=== PATIENT | female | born 1980 | race Two or more races ===

== ENCOUNTER 2021-01-06 09:20 | Emergency (ER) | payer OTHER ==
[~2021-01-06] VITALS: Ht 152.4 cm; Wt 54.5 kg
[2021-01-06 09:28] VITALS: BP 110/49; Ht 152.4 cm; Wt 54.5 kg
[2021-01-06 09:53] LABS: BASOPHILS 0.5 % (0-2); EOSINOPHILS 0.8 % (0-7); HEMATOCRIT 36.8 % (36.0-48.0); HEMOGLOBIN 12.4 g/dL (12-16); IMMATURE GRANULOCYTES 0.1 % (0-5); LYMPHOCYTE ABS# 1.38 10x3/uL (1.18-3.74); MCH 30.2 pg (26.0-34.0); MCHC 33.7 g/dL (31.0-37.0); MCV 89.8 fL (80.0-100.0); MEAN PLATELET VOLUME 9.3 fL (7.4-10.4); NEUTROPHIL ABS# 5.48 10x3/uL (1.56-6.13); NEUTROPHILS 71.6 % (40-80); PLATELET COUNT 436 10x3/uL (130-400); RDW 13.3 % (11.5-14.5); WBC 7.7 10x3/uL (4.8-10.8)
[2021-01-06 09:58] LABS: CALC OSMOLALITY 267 mosm/kg (275-300); CALCIUM 8.9 mg/dL (8.5-10.1); CARBON DIOXIDE 20.8 mmol/L (21.0-32.0); CHLORIDE - SERUM 103 mmol/L (98-107); CREATININE - SERUM 0.5 mg/dL (0.6-1.3); GLUCOSE 85 mg/dL (74-106); POTASSIUM - SERUM 4.2 mmol/L (3.5-5.1); SODIUM 135 mmol/L (136-145); UREA NITROGEN 9 mg/dL (7-18); eGFR NON AFRICAN AMERICAN > 90 mL/min (90-120)
[2021-01-06 10:26] LABS: ALKALINE PHOSPHATASE 53 U/L (30-120); ALT (SGPT) 18 U/L (10-68); AMYLASE - SERUM 53 U/L (25-115); BILIRUBIN - TOTAL 0.72 mg/dL (0.2-1.3); HCG - QUANTITATIVE (MATERNAL) 44107 mIU/mL; LIPASE 69 U/L (73-393); PROTEIN - SERUM 7.6 g/dL (6.4-8.2)
[2021-01-06 10:45] LABS: BILIRUBIN NEGATIVE (NEGATIVE); KETONE LARGE mg/dL (NEGATIVE); NITRITE NEGATIVE (NEGATIVE); PH 6.5 (5.0-8.0); UROBILINOGEN NORMAL mg/dL (< 2)
[2021-01-06 10:46] LABS: BACTERIA FEW HPF (NONE SEEN); SQUAMOUS EPITHELIAL 0-5 HPF (0-4); WHITE CELLS - URINE 0-5 HPF (0-4)
[2021-01-06] MEDS ORDERED: MONISTAT-7 VAG45 G1 VG (11:38)
[2021-01-06] MEDS ORDERED: REGLAN5 MG PO (11:38)
[2021-01-06] MEDS ORDERED: MACROBID100 MG PO (11:38)
== END 2021-01-06 11:50 | disposition home or self-care (01) ==
LOC: D.ER 09:20
PROVIDERS: Family Medicine
DX: O21.9 Vomiting of pregnancy, unspecified (principal); Z3A.01 Less than 8 weeks gestation of pregnancy; B37.9 Candidiasis, unspecified; O23.41 Unspecified infection of urinary tract in pregnancy, first trimester

== ENCOUNTER 2021-01-26 23:14 | Emergency (ER) | payer OTHER ==
[~2021-01-26] VITALS: Ht 152.4 cm; Wt 59.0 kg
[~2021-01-26 23:14] MED LIST: MACROBID100 MG PO; MONISTAT-7 VAG45 G1 VG; REGLAN5 MG PO
[2021-01-26 23:18] VITALS: Ht 152.4 cm; Wt 59.0 kg
[2021-01-26 23:47] LABS: BASOPHILS 0.4 % (0-2); EOSINOPHILS 5.3 % (0-7); HEMOGLOBIN 11.7 g/dL (12-16); IMMATURE GRANULOCYTES 0.1 % (0-5); LYMPHOCYTE ABS# 2.39 10x3/uL (1.18-3.74); LYMPHOCYTES 25.9 % (15-50); MCH 30.2 pg (26.0-34.0); MCHC 34.4 g/dL (31.0-37.0); MCV 87.6 fL (80.0-100.0); MEAN PLATELET VOLUME 9.3 fL (7.4-10.4); MONOCYTES 9.5 % (2-11); NEUTROPHIL ABS# 5.42 10x3/uL (1.56-6.13); NEUTROPHILS 58.8 % (40-80); PLATELET COUNT 477 10x3/uL (130-400); RBC 3.88 10x6/uL (4.00-5.40); RDW 13.6 % (11.5-14.5); WBC 9.2 10x3/uL (4.8-10.8)
[2021-01-26 23:49] LABS: BILIRUBIN NEGATIVE (NEGATIVE); KETONE NEGATIVE (NEGATIVE); NITRITE NEGATIVE (NEGATIVE); UROBILINOGEN NORMAL mg/dL (< 2)
[2021-01-27 00:06] LABS: CALC OSMOLALITY 269 mosm/kg (275-300); CARBON DIOXIDE 21.2 mmol/L (21.0-32.0); CHLORIDE - SERUM 104 mmol/L (98-107); CREATININE - SERUM 0.5 mg/dL (0.6-1.3); GLUCOSE 95 mg/dL (74-106); POTASSIUM - SERUM 3.7 mmol/L (3.5-5.1); SODIUM 136 mmol/L (136-145); UREA NITROGEN 7 mg/dL (7-18); eGFR NON AFRICAN AMERICAN > 90 mL/min (90-120)
[2021-01-27 00:38] LABS: ALBUMIN 3.5 g/dL (3.4-5.0); ALKALINE PHOSPHATASE 50 U/L (30-120); ALT (SGPT) 20 U/L (10-68); BILIRUBIN - TOTAL 0.28 mg/dL (0.2-1.3); HCG - QUANTITATIVE (MATERNAL) 180757 mIU/mL; PROTEIN - SERUM 7.5 g/dL (6.4-8.2)
[2021-01-27] MEDS ORDERED: PHENERGAN50 MG RC (01:15)
[2021-01-27] MEDS ORDERED: PHENERGAN25 M1 PO (01:15)
[2021-01-27 02:37] VITALS: BP 114/72
== END 2021-01-27 02:40 | disposition home or self-care (01) ==
LOC: D.ER 23:14
PROVIDERS: Student in an Organized Health Care Education/Training Program
DX: O26.891 Other specified pregnancy related conditions, first trimester (principal); Z3A.10 10 weeks gestation of pregnancy; R11.0 Nausea